=== PATIENT | male | born 1985 | race Caucasian/White ===

== ENCOUNTER → 2020-06-26 | Outpatient (CLI) | payer OTHER ==
[2020-06-26 11:24] LABS: BASO # 0.1 10^3/uL (0.0-0.2); BASO % 0.6 % (0.0-1.0); EOS # 0.1 10^3/uL (0.0-0.5); EOS % 1.2 % (0.0-3.0); HEMATOCRIT 44.4 % (42.0-52.0); HEMOGLOBIN 14.7 g/dl (13.5-17.5); LYMPH % 30.9 % (24.0-44.0); MEAN CORPUSCULAR HEMOGLOBIN 30.6 pg (27.0-33.0); MEAN CORPUSCULAR HGB CONC 33.1 g/dl (32.0-36.5); MEAN CORPUSCULAR VOLUME 92.5 fl (80.0-96.0); MONO # 0.9 10^3/uL (0.0-0.8); MONO % 9.1 % (0.0-5.0); NEUTROPHILS # 5.6 10^3/uL (1.5-8.5); NEUTROPHILS % 57.9 % (36.0-66.0); PLATELET COUNT, AUTOMATED 189 10^3/uL (150-450); WHITE BLOOD COUNT 9.6 10^3/uL (4.0-10.0)
[2020-06-26 11:33] LABS: APPEARANCE, URINE CLEAR (CLEAR); BACTERIA, URINE AUTO NEGATIVE (NEGATIVE); BILIRUBIN, URINE AUTO NEGATIVE (NEGATIVE); BLOOD, URINE BLOOD NEGATIVE (NEGATIVE); COLOR, URINE YELLOW (YELLOW); GLUCOSE, URINE (UA) AUTO NEGATIVE (NEGATIVE); KETONE, URINE AUTO NEGATIVE (NEGATIVE); LEUKOCYTE ESTERASE, URINE AUTO NEGATIVE (NEGATIVE); NITRITE, URINE AUTO NEGATIVE (NEGATIVE); PROTEIN, URINE AUTO NEGATIVE (NEGATIVE); RBC, URINE AUTO 1 /HPF (0-3); SPECIFIC GRAVITY URINE AUTO 1.015 (1.002-1.035); SQUAMOUS EPITHELIAL CELL UR AU 0 /HPF (0-6); UROBILINOGEN, URINE AUTO 0.2 mg/dL (0.0-2.0); WBC, URINE AUTO 1 /HPF (0-3)
[2020-06-26 12:16] LABS: ALT/SGPT 187 U/L (12-78); BILIRUBIN,TOTAL 0.4 MG/DL (0.2-1.0); BLOOD UREA NITROGEN 11 MG/DL (7-18); CALCIUM LEVEL 9.8 MG/DL (8.5-10.1); CARBON DIOXIDE LEVEL 31 MEQ/L (21-32); CHLORIDE LEVEL 103 MEQ/L (98-107); CREATININE FOR GFR 0.67 MG/DL (0.70-1.30); GLOMERULAR FILTRATION RATE > 60.0 (>60); GLUCOSE, FASTING 67 MG/DL (70-100); HEPATITIS B SURFACE ANTIBODY POSITIVE (POSITIVE); HEPATITIS B SURFACE ANTIGEN NEGATIVE (NEGATIVE); POTASSIUM SERUM 4.5 MEQ/L (3.5-5.1); SODIUM LEVEL 138 MEQ/L (136-145); TOTAL PROTEIN 7.3 GM/DL (6.4-8.2)
== END ==
LOC: M LAB 10:24
PROVIDERS: ATTEND Physician Assistant Medical
DX: B18.2 Chronic viral hepatitis C (principal)

== ENCOUNTER 2020-07-27 18:07 | Emergency (ER) | payer OTHER ==
[~2020-07-27] VITALS: Ht 165.1 cm; Wt 70.9 kg
[2020-07-27] MEDS ORDERED: HYDR-3363 (18:16)
[2020-07-27] MEDS ORDERED: MIRT1TAB (18:16)
[2020-07-27] MEDS ORDERED: ESCI20TA (18:16)
[2020-07-27] MEDS ORDERED: KETOROLAC 60MG 2ML VIAL IM ONE (20:30)
--- NOTE | 2020-07-27 20:35 | REPVR ---
PROCEDURE INFORMATION: Exam: US Scrotum and Artery or Vein of the Abdominal and/or Reproductive Organs, Limited Scrotum Exam date and time: 07/27/2020 8:01 PM Age: 35 years old Clinical indication: Groin pain and scrotum pain; Additional info: Pain and swelling to left testicle TECHNIQUE: Imaging protocol: Real-time ultrasound of the scrotum. Real-time duplex ultrasound scan of the arterial or venous flow with sifuentes scale, color Doppler flow and spectral waveform analysis with image documentation. Limited Duplex exam focused of the scrotum. Duplex images required to evaluate for torsion and other vascular conditions. COMPARISON: No relevant prior studies available. FINDINGS: Right testicle: The right testicle is normal in size, 4.4 x 2.2 x 2.7 cm (13.7 mL). It has a normal homogeneous echotexture. There is no testicular mass. Left testicle: The left testicle is normal in size, 4.0 x 2.1 x 2.7 cm (11.9 mL). It has a normal homogeneous echotexture. There is no testicular mass. Epididymides: Right Epididymis: The right epididymal head is normal in size, 5.2 mm, and vascularity. Left Epididymis: The left epididymal head is normal in size, 5.9 mm. and vascularity. Scrotum: No varicocele. No scrotal fluid collections or wall thickening identified. Free fluid: Small bilateral hydroceles. Duplex Doppler of the scrotum Right testicle: Normal vascularity is documented using color and duplex Doppler. Resistive index is 0.67. PSV is 5.49 cm/s. EDV is 1.78 cm/s. Normal Doppler waveform. Left testicle: Normal vascularity is documented using color and duplex Doppler. Resistive index is 0.69. PSV is 7.13 cm/s. EDV is 2.20 cm/s. Normal Doppler waveform. IMPRESSION: 1. Small bilateral hydroceles. 2. Normal testicles. 3. No evidence of testicular torsion. Normal duplex Doppler study. 4. No epididymal small abnormality. Electronically signed by: Dayo Moctezuma On 07/27/2020 20:36:07 PM
--- NOTE | 2020-07-27 20:41 | REPVR ---
PROCEDURE INFORMATION: Exam: US Pelvis Limited, Male Exam date and time: 07/27/2020 8:01 PM Age: 35 years old Clinical indication: Pain and swelling to left testicle. Rule out inguinal hernia TECHNIQUE: Imaging protocol: Real-time pelvic ultrasound with image documentation. COMPARISON: Concurrent scrotal ultrasound. FINDINGS: Soft tissues: A left inguinal hernia contains only peritoneal fat. It does not contain bowel. It extends down to the scrotal sac. It is not reducible. The abdominal wall defect is 18 mm at rest and 24 mm with a Valsalva maneuver. Left hydrocele. IMPRESSION: Left inguinal hernia is non-reducible and contains fat without bowel. Electronically signed by: Dayo Moctezuma On 07/27/2020 20:41:34 PM
[2020-07-27] MEDS ORDERED: traMADol 50 MG TAB PO ONE (21:00)
[2020-07-27] MEDS ORDERED: traMADol 50 MG TAB (BULK 4 TAB ED) PO ONE (21:00)
[2020-07-27 21:10] VITALS: BP 125/67
[2020-07-27 21:25] LABS: CHLAMYDIA DNA AMPLIFICATION NEGATIVE (NEGATIVE); GC DNA AMPLIFICATION NEGATIVE (NEGATIVE)
== END 2020-07-27 21:18 | disposition home or self-care (01) ==
LOC: EDBD 18:07 → M ED 18:07
DX: K40.90 Unilateral inguinal hernia, without obstruction or gangrene, not specified as recurrent (principal); Z86.19 Personal history of other infectious and parasitic diseases; F17.200 Nicotine dependence, unspecified, uncomplicated; Z88.6 Allergy status to analgesic agent
CPT/HCPCS: 76857; 76870; 81001; 87491; 87591; 93976; 96372; 99284; J1885

== ENCOUNTER → 2020-09-22 | Outpatient (CLI) | payer OTHER ==
[~2020-09-22] MED LIST: ESCI20TA16; HYDR-3363; MIRT1TAB
== END ==
LOC: M LABSMTC 09:27
PROVIDERS: ATTEND Anesthesiology
DX: Z01.812 Encounter for preprocedural laboratory examination (principal); Z20.822 Contact with and (suspected) exposure to COVID-19

== ENCOUNTER 2020-09-27 06:55 | Day surgery (SDC) | payer OTHER ==
[~2020-09-27] VITALS: Ht 165.1 cm; Wt 73.9 kg
[~2020-09-27 06:55] MED LIST changes: +LR 1,000 ML IV ONE; +ceFAZolin SOD 2 GM in IV 1 EA IV ONE
--- OUTSIDE RECORDS SUMMARY | 2020-09-27 06:59 | CCD | Continuity of Care Document ---
Author Author Bobby LANDA MA Organization Unknown Address [address] [place] [address] Phone [phone] Care Team Providers Care Fountain Pen Turner Name Role Phone Antonio Gil DO AUTM [phone] Antonio Gil DO AUTM [phone] Social History Type Date Description Comments Sex Unknown Results Test Acquired Date Facility Test Result H/L Range Note Ua Routine 06/26/[address] [address] [phone] Appearance, Urine CLEAR Normal Clear Color, Urine YELLOW Normal Yellow PH,Urine 7.0 units Normal 5.0-9.0 Specific [place] Urine Auto 1.015 Normal 1.002-1.035 Protein, Urine Auto NEGATIVE mg/dL Normal Negative Glucose, Urine (Ua) Auto NEGATIVE mg/dL Normal Negative Ketone, Urine Auto NEGATIVE mg/dL Normal Negative Urobilinogen, Urine Auto 0.2 mg/dL Normal 0.0-2.0 Bilirubin, Urine Auto NEGATIVE Normal Negative Nitrite, Urine Auto NEGATIVE Normal Negative Leukocyte Esterase, Urine Auto NEGATIVE Normal Negative Blood, Urine Blood NEGATIVE Normal Negative WBC, Urine Auto 1 /HPF Normal 0-3 RBC, Urine Auto 1 /HPF Normal 0-3 Bacteria, Urine Auto NEGATIVE Normal Negative Squamous Epithelial Cell Ur AU 0 /HPF Normal 0-6 Sperm, Urine Auto MODERATE High None Hyaline Cast, Urine Auto 0 /LPF Normal 0-1 CBC With Differential 06/26/[address] [address] [phone] White Blood Count 9.6 10 Normal 4.0-10.0 Red Blood Count 4.80 10 Normal 4.30-6.10 Hemoglobin 14.7 g/dL Normal 13.5-17.5 Hematocrit 44.4 % Normal 42.0-52.0 Mean Corpuscular Volume 92.5 fl Normal 80.0-96.0 Mean Corpuscular Hemoglobin 30.6 pg Normal 27.0-33.0 Mean Corpuscular HGB Conc 33.1 g/dL Normal 32.0-36.5 Red Cell Distribution Width 12.8 % Normal 11.5-14.5 Platelet Count, Automated 189 10 Normal 150-450 Neutrophils % 57.9 % Normal 36.0-66.0 Lymph % 30.9 % Normal 24.0-44.0 [place] % 9.1 % High 0.0-5.0 Eos % 1.2 % Normal 0.0-3.0 Baso % 0.6 % Normal 0.0-1.0 Immature Granulocyte % 0.3 % Normal 0-3.0 Nucleated Red Blood Cell % 0.0 % Normal 0-0 Neutrophils # 5.6 10 Normal 1.5-8.5 Lymph # 3.0 10 Normal 1.5-5.0 [place] # 0.9 10 High 0.0-0.8 Eos # 0.1 10 Normal 0.0-0.5 Baso # 0.1 10 Normal 0.0-0.2 Comprehensive Metabolic Profil 06/26/[address] [address] [phone] Glucose, Fasting 67 mg/dL Low 70-100 Blood Urea Nitrogen 11 mg/dL Normal 7-18 Creatinine For GFR 0.67 mg/dL Low 0.70-1.30 Glomerular Filtration Rate > 60.0 Normal >60 1 Sodium Level 138 mEq/L Normal 136-145 Potassium Serum 4.5 mEq/L Normal 3.5-5.1 Chloride Level 103 mEq/L Normal 98-107 Carbon Dioxide Level 31 mEq/L Normal 21-32 Anion Gap 4 mEq/L Low 8-16 Calcium Level 9.8 mg/dL Normal 8.5-10.1 Ast/Sgot 66 U/L High 7-37 Alt/SGPT 187 U/L High 12-78 Alkaline Phosphatase 71 U/L Normal 45-117 Bilirubin,Total 0.4 mg/dL Normal 0.2-1.0 Total Protein 7.3 GM/DL Normal 6.4-8.2 Albumin 4.0 GM/DL Normal 3.2-5.2 Albumin/Globulin Ratio 1.2 Normal Laboratory test [facility] [address] [place], [place] [id number] [phone] Hepatitis B Surface Antigen NEGATIVE Normal Nega tive Hepatitis B Surface Antibody POSITIVE Normal Positive Hepatitis C Virus Genotype 06/26/2020 [facility] [address] [place] [address] [phone] Hepatitis C Virus Genotype 1a Normal . Comment For Hepc Genotype (SEE NOTE) Normal . 2 Hepatitis C Quant By PCR 06/26/2020 [facility] [address] [place] [address] [phone] Hepatitis C Quantitation [id number] IU/mL Normal . Hepatitis C log10 6.089 Normal . 3 Test Information: (SEE NOTE) Normal . 4 Laboratory test finding [facility] [address] [place] [address] [phone] Hepatitis A IgG Total Negative Normal Negative 5 Hepatitis C Fibrosure [id number] 06/26/2020 [facility] [address] [place] [address] [phone] Fibrosis Score 0.13 Normal 0.00-0.21 Fibrosis Stage (SEE NOTE) Normal . 6 Necroinflam Score 0.77 High 0.00-0.17 Necroinflamm Grade A3-Severe activi <SEE NOTE> Normal . 7 Alpha 2-Macroglobulin 218 mg/dL Normal 110-276 Haptoglobin 136 mg/dL Normal 17-317 Apolipoprotein A-1 118 mg/dL Normal 101-178 Total Bilirubin 0.3 mg/dL Normal 0.0-1.2 GGT 16 IU/L Normal 0-65 Alt 204 IU/L High 0-55 Interpretation (SEE NOTE) Normal . 8 Fibrosis Scoring (SEE NOTE) Normal . 9 Necroinflam Scoring (SEE NOTE) Normal . 10 Limitations (SEE NOTE) Normal . 11 Comment : (SEE NOTE) Normal . 12 1 Units are mL/min/1.73 m2 Chronic Kidney Disease Staging per NKF: Stage I & II GFR >=60 Normal to Mildly Decreased Stage III GFR 30-59 Moderately Decreased Stage IV GFR 15-29 Severely Decreased Stage V GFR <15 Very Little GFR Left ESRD GFR <15 on LOG HAULER 2 . This test was developed and its performance characteristics determined by [facility]. It has not been cleared or approved by the U.S. Food and Drug Administration. . The FDA has determined that such clearance or approval is not necessary. This test is used for clinical purposes. It should not be regarded as investigational or for research. 3 Result Units: log10 IU/mL 4 . The quantitative range of this assay is 15 IU/mL to 100 million IU/mL. 5 Performed at: [address] [id number] Auto Brake Technician: Steven Blackwood MD, Phone: [phone] Performed at: [address] [id number] Auto Brake Technician: Rima Ochoa MD, Phone: [phone] 6 F0 - No fibrosis 7 A3-Severe activity 8 . Quantitative results of 6 biochemical tests are analyzed using a computational algorithm to provide a quantitative surrogate marker (0.0-1.0) for liver fibrosis (METAVIR F0- F4) and for necroinflammatory activity (METAVIR A0-A3). 9 . <0.21 = Stage F0 - No fibrosis 0.21 - 0.27 = Stage F0 - F1 0.27 - 0.31 = Stage F1 - Portal fibrosis 0.31 - 0.48 = Stage F1 - F2 0.48 - 0.58 = Stage F2 - Bridging fibros is with few septa 0.58 - 0.72 = Stage F3 - Bridging fibros is with many septa 0.72 - 0.74 = Stage F3 - F4 >0.74 = Stage F4 - Cirrhosis 10 . <0.17 = Grade A0 - No Activity 0.17 - 0.29 = Grade A0 - A1 0.29 - 0.36 = Grade A1 - Minimal activit y 0.36 - 0.52 = Grade A1 - A2 0.52 - 0.60 = Grade A2 - Moderate activi ty 0.60 - 0.62 = Grade A2 - A3 >0.62 = Grade A3 - Severe activity 11 The negative predictive valu e of a Fibrotest score <0.31 (absence of clinically significant fibro sis) was 85% when compared to liver biopsy in 1,270 HCV infected patients with a 38% prevalence of significant liver fibrosis (F2, 3 or 4). The positive predictive value of a Fibro-test score >0.48 (F2, 3, 4) was 61% in that same patient cohort. HCV FibroSURE is not recommended in patients with Gilbert Disease, acute hemolysis (e.g. HCV ribavirin therapy mediated hemolysis) acute hepa-titis of the liver, extra- hepatic cholestasis, transplant patients, and/or renal insufficiency patients. Any of these clinical situations may lead to inaccurate quantitative predictions of fibrosis and necroinflammatory activity in the liver. 12 . This test was developed and its performance characteristics determined by [facility]. It has not been cleared or approved by the Food and Drug Administration. The FDA has determined that such clearance or approval is not necessary. . For questions regarding this report please contact customer service at . Encounters Type Date Location Provider Dx Diagnosis Office Visit 09/09/2020 9:30a [facility] JEWEL Soni Z01.818 Encounter for other preproce dural examination F41.9 Anxiety disorder, unspecifie d Office Visit 08/09/2020 9:00a [facility] JEWEL Soni J01.10 Acute frontal sinusitis, uns pecified F41.9 Anxiety disorder, unspecifie d Z03.818 Encntr for obs for susp exps r to oth biolg agents ruled out Assessments Date Code Description Provider 09/09/2020 Z01.818 Encounter for other preprocedura l examination JEWEL Harper 09/09/2020 F41.9 Anxiety disorder, unspecified JEWEL Mann 08/09/2020 J01.10 Acute frontal sinusitis, unspeci fied JEWEL Harper 08/09/2020 F41.9 Anxiety disorder, unspecified JEWEL Mann 08/09/2020 Z03.818 Encounter for observ ation for suspected exposure to other biological agents ruled out JEWEL Harper 06/17/2020 F41.9 Anxiety disorder, unspecified JEWEL Mann 06/17/2020 F32.9 Major depressive disorder, singl e episode, unspecified JEWEL Harper Referrals Refer to Dr Lawson for Referral Status Appt Date Clive, DR. Marylene PATIENT WITH H/O SUBSTANCE A BUSE. HEP C + PLEASE EVAL AND TREAT. Sent [facility] [place] [address] [phone]
--- OUTSIDE RECORDS SUMMARY | 2020-09-27 06:59 | CCD | Continuity of Care Document ---
Author Author Bobby LANDA MS Organization Unknown Address [address] [place] [address] Phone [phone] Care Team Providers Care Railroad Car Truck Builder Name Role Phone Antonio Gil DO AUTM [phone] Antonio Gil DO AUTM [phone] Social History Type Date Description Comments Sex Unknown Results Test Acquired Date Facility Test Result H/L Range Note Ua Routine 06/26/[address] [address] [phone] Appearance, Urine CLEAR Normal Clear Color, Urine YELLOW Normal Yellow PH,Urine 7.0 units Normal 5.0-9.0 Specific [place] Urine Auto 1.015 Normal 1.002-1.035 Protein, Urine [...] /LPF Normal 0-1 CBC With Differential 06/26/[address] [address] [phone] White Blood Count 9.6 10 Normal 4.0-10.0 [...] 36.0-66.0 Lymph % 30.9 % Normal 24.0-44.0 [place] % 9.1 % High 0.0-5.0 Eos % 1.2 % Normal 0.0-3.0 Baso % 0.6 % Normal 0.0-1.0 Immature Granulocyte % 0.3 % Normal 0-3.0 Nucleated Red Blood Cell % 0.0 % Normal 0-0 Neutrophils # 5.6 10 Normal 1.5-8.5 Lymph # 3.0 10 Normal 1.5-5.0 [place] # 0.9 10 High 0.0-0.8 Eos # 0.1 10 Normal 0.0-0.5 Baso # 0.1 10 Normal 0.0-0.2 Comprehensive Metabolic Profil 06/26/[address] [address] [phone] Glucose, Fasting 67 mg/dL Low 70-100 Blood [...] Ratio 1.2 Normal Laboratory test [facility] [address] [place], [place] [id number] [phone] Hepatitis B Surface Antigen NEGATIVE Normal Nega tive Hepatitis B Surface Antibody POSITIVE Normal Positive Hepatitis C Virus Genotype 06/26/2020 [facility] [address] [place] [address] [phone] Hepatitis C Virus Genotype 1a Normal . Comment For Hepc Genotype (SEE NOTE) Normal . 2 Hepatitis C Quant By PCR 06/26/2020 [facility] [address] [place] [address] [phone] Hepatitis C Quantitation [id number] IU/mL Normal . Hepatitis C log10 6.089 Normal . 3 Test Information: (SEE NOTE) Normal . 4 Laboratory test finding 06/26/2020 [facility] [address] [place] [address] [phone] Hepatitis A IgG Total Negative Normal Negative 5 Hepatitis C Fibrosure [id number] 06/26/2020 [facility] [address] [place] [address] [phone] Fibrosis Score 0.13 Normal 0.00-0.21 Fibrosis Stage [...] Little GFR Left ESRD GFR <15 on ELECTRONICS SUPERVISOR 2 . This test was developed and its performance characteristics determined by [facility]. It has not been cleared or approved [...] to 100 million IU/mL. 5 Performed at: [address] [id number] Mobile Ui Designer: Steven Blackwood MD, Phone: [phone] Performed at: [address] [id number] Mobile Ui Designer: Rima Ochoa MD, Phone: [phone] 6 F0 - No fibrosis 7 A3-Severe [...] developed and its performance characteristics determined by [facility]. It has not been cleared or approved by the Food and Drug Administration. The FDA has determined that such clearance or approval is not necessary. . For questions regarding this report please contact customer service at . Encounters Type Date Location Provider Dx Diagnosis Office Visit 08/09/2020 9:00a [facility] JEWEL Soni J01.10 Acute frontal sinusitis, uns pecified F41.9 Anxiety disorder, unspecifie d Z03.818 Encntr for obs for susp exps r to oth biolg agents ruled out Assessments Date Code Description Provider 08/09/2020 J01.10 Acute frontal sinusitis, unspeci fied JEWEL Harper 08/09/2020 F41.9 Anxiety disorder, unspecified JEWEL Mann 08/09/2020 Z03.818 Encounter for observ ation for suspected exposure to other biological agents ruled out JEWEL Harper 06/17/2020 F41.9 Anxiety disorder, unspecified JEWEL Mann 06/17/2020 F32.9 Major depressive disorder, singl e episode, unspecified JEWEL Harper Plan of Treatment Future Appointment(s):* 09/09/2020 9:30 am - JEWEL Harper at [facility] Referrals Refer to Reason for Referral Status Appt Date DR. Torri Duffy PATIENT WITH H/O SUBSTANCE A BUSE. HEP C + PLEASE EVAL AND TREAT. Sent [address] [address] [phone]
--- OUTSIDE RECORDS SUMMARY | 2020-09-27 07:00 | CCD | Continuity of Care Document ---
Author Author Bobby ABREU DO Organization Unknown Address [address] [place] [address], [address] [place] [address] Phone [phone] Care Team Providers Care Field Advisor Name Role Phone Neymar Santizo AUTM [phone] Leah Ramos M.D. AUTM Problems Description No Information Available Social History Type Date Description Comments Sex Unknown ETOH Use Denies alcohol use NONE IN 3-[address] [facility] Tobacco Use Start: Unknown Patient is a current smoker, smo kes every day 1/2-1 PPD PREVIOUS 3PPD Recreational Drug Use Former Drug User Allergies, Adverse Reactions, Alerts Active Allergies Reaction Severity Comments Date Tylenol Hep C 08/01/2020 Medications Active Medications SIG Qnty Indications Ordering Provide r Date Hydroxyzine HCL 25mg Tablets 1 In Am, 2 AT Bedtime Unknown Mirtazapine 7.5mg Tablets at bedtime Unknown Escitalopram Oxalate 20mg Tablets every day 90tabs Unknown Vivitrol 380mg Suspension Rec Monthly Unknown Immunizations Description No Information Available Vital Signs Date Vital Result Comment 08/01/2020 2:21pm BP Systolic 134 mmHg BP Diastolic 71 mmHg Height 65 inches 5'5" Weight 157.00 lb BMI (Body Mass Index) 26.1 kg/m2 [place] Body Weight 136 lb Weight 71.215 kg BSA (Body Surface Area) 1.78 m2 Results Description No Information Available Procedures Description No Information Available Medical Devices Description No Information Available Encounters Description No Information Available Assessments Description No Information Available Plan of Treatment No Information Available Functional Status Description No Information Available Mental Status Description No Information Available Referrals Description No Information Available
--- OUTSIDE RECORDS SUMMARY | 2020-09-27 07:00 | CCD ---
Author Author [facility] Organization [facility] Address Unknown Phone Unavailable Care Team Providers Care Teacher Aide Clerical Name Role Phone Karoline LANDA PA Unavailable Unavailable TONTARSKI G EDIE PA Unavailable Unavailable TONTARSKI G EDIE PA Unavailable Unavailable TONTARSKI G EDIE PA Unavailable Unavailable TONTARSKI, G EDIE PA Unavailable Unavailable TONTARSKI, G EDIE PA Unavailable Unavailable TONTARSKI, G EDIE PA Unavailable Unavailable TONTARSKI, G EDIE PA Unavailable Unavailable TONTARSKI, G EDIE PA Unavailable Unavailable TONTARSKI, G EDIE PA Unavailable Unavailable TONTARSKI, G EDIE PA Unavailable Unavailable TONTARSKI, G EDIE PA Unavailable Unavailable TONTARSKI G EDIE PA Unavailable Unavailable TONTARSKI, G EDIE PA Unavailable Unavailable TONTARSKI, G EDIE PA Unavailable Unavailable TONTARSKI, G EDIE PA Unavailable Unavailable TONTARSKI, G EDIE PA Unavailable Unavailable TONTARSKI, G EDIE PA Unavailable Unavailable TONTARSKI, G EDIE PA Unavailable Unavailable TONTARSKI, G EDIE PA Unavailable Unavailable TONTARSKI, G EDIE PA Unavailable Unavailable TONTARSKI, G EDIE PA Unavailable Unavailable TONTARSKI, G EDIE PA Unavailable Unavailable TONTARSKI, G EDIE PA Unavailable Unavailable TONTARSKI, G EDIE PA Unavailable Unavailable TONTARSKI, G EDIE PA Unavailable Unavailable TONTARSKI, G EDIE PA Unavailable Unavailable TONTARSKI, G EDIE PA Unavailable Unavailable TONTARSKI, G EDIE PA Unavailable Unavailable TONTARSKI, G EDIE PA Unavailable Unavailable TONTARSKI, G EDIE PA Unavailable Unavailable TONTARSKI, G EDIE PA Unavailable Unavailable TONTARSKI, G EDIE PA Unavailable Unavailable TONTARSKI, G EDIE PA Unavailable Unavailable TONTARSKI, G EDIE PA Unavailable Unavailable TONTARSKI, G EDIE PA Unavailable Unavailable TONTARSKI, G EDIE PA Unavailable Unavailable TONTARSKI, G EDIE PA Unavailable Unavailable TONTARSKI, G EDIE PA Unavailable Unavailable TONTARSKI, G EDIE PA Unavailable Unavailable TONTARSKI, G EDIE PA Unavailable Unavailable TONTARSKI, G EDIE PA Unavailable Unavailable TONTARSKI, G EDIE PA Unavailable Unavailable TONTARSKI, G EDIE PA Unavailable Unavailable TONTARSKI, G EDIE PA Unavailable Unavailable TONTARSKI, G EDIE PA Unavailable Unavailable TONTARSKI, G EDIE PA Unavailable Unavailable TONTARSKI, G EDIE PA Unavailable Unavailable Sanford Spain MD Unavailable Unavailable Sanford Spain MD Unavailable Unavailable Sanford Spain MD Unavailable Unavailable Sanford Spain MD Unavailable Unavailable Sanford Spain MD Unavailable Unavailable Sanford Spain MD Unavailable Unavailable Mejia, L Nu ON SITE PROPERTY MANAGER Unavailable Unavailable Mejia, L Nu ON SITE PROPERTY MANAGER Unavailable Unavailable Mejia, L Nu ON SITE PROPERTY MANAGER Unavailable Unavailable Mejia, L Nu ON SITE PROPERTY MANAGER Unavailable Unavailable Mejia, L Nu ON SITE PROPERTY MANAGER Unavailable Unavailable Mejia, L Nu ON SITE PROPERTY MANAGER Unavailable Unavailable Mejia, L Nu ON SITE PROPERTY MANAGER Unavailable Unavailable Mejia, L Nu ON SITE PROPERTY MANAGER Unavailable Unavailable Mejia, L Nu ON SITE PROPERTY MANAGER Unavailable Unavailable Mejia, L Nu ON SITE PROPERTY MANAGER Unavailable Unavailable Mejia, L Nu ON SITE PROPERTY MANAGER Unavailable Unavailable Mejia, L Nu ON SITE PROPERTY MANAGER Unavailable Unavailable Mejia, L Nu ON SITE PROPERTY MANAGER Unavailable Unavailable Mejia, L Nu ON SITE PROPERTY MANAGER Unavailable Unavailable Mejia, L Nu ON SITE PROPERTY MANAGER Unavailable Unavailable Mejia, L Nu ON SITE PROPERTY MANAGER Unavailable Unavailable Mejia, L Nu ON SITE PROPERTY MANAGER Unavailable Unavailable Mejia, L Nu ON SITE PROPERTY MANAGER Unavailable Unavailable Mejia, L Nu ON SITE PROPERTY MANAGER Unavailable Unavailable Mejia, L Nu ON SITE PROPERTY MANAGER Unavailable Unavailable Mejia, L Nu ON SITE PROPERTY MANAGER Unavailable Unavailable Mejia, L Nu ON SITE PROPERTY MANAGER Unavailable Unavailable Mejia, L Nu ON SITE PROPERTY MANAGER Unavailable Unavailable Mejia, L Nu ON SITE PROPERTY MANAGER Unavailable Unavailable Mejia, L Nu ON SITE PROPERTY MANAGER Unavailable Unavailable Mejia, L Nu ON SITE PROPERTY MANAGER Unavailable Unavailable Mejia, L Nu ON SITE PROPERTY MANAGER Unavailable Unavailable Mejia, L Nu ON SITE PROPERTY MANAGER Unavailable Unavailable Mejia, L Nu ON SITE PROPERTY MANAGER Unavailable Unavailable Mejia, L Nu ON SITE PROPERTY MANAGER Unavailable Unavailable Mejia, L Nu ON SITE PROPERTY MANAGER Unavailable Unavailable Mejia, L Nu ON SITE PROPERTY MANAGER Unavailable Unavailable Mejia, L Nu ON SITE PROPERTY MANAGER Unavailable Unavailable Mejia, L Nu ON SITE PROPERTY MANAGER Unavailable Unavailable Mejia, L Nu ON SITE PROPERTY MANAGER Unavailable Unavailable Mejia, L Nu ON SITE PROPERTY MANAGER Unavailable Unavailable Mejia, L Nu ON SITE PROPERTY MANAGER Unavailable Unavailable Mejia, L Nu ON SITE PROPERTY MANAGER Unavailable Unavailable Mejia, L Nu ON SITE PROPERTY MANAGER Unavailable Unavailable Mejia, L Nu ON SITE PROPERTY MANAGER Unavailable Unavailable Mejia, L Nu ON SITE PROPERTY MANAGER Unavailable Unavailable Mejia, L Nu ON SITE PROPERTY MANAGER Unavailable Unavailable Mejia, L Nu ON SITE PROPERTY MANAGER Unavailable Unavailable Mejia, L Nu ON SITE PROPERTY MANAGER Unavailable Unavailable Re-disclosure Warning The records that you are about to access may contain information from federally-assisted alcohol or drug abuse programs. If such information is present, then the following federally mandated warning applies: This information has been disclosed to you from records protected by federal confidentiality rules (42 CFR part 2). The federal rules prohibit you from making any further disclosure of this information unless further disclosure is expressly permitted by the written consent of the person to whom it pertains or as otherwise permitted by 42 CFR part 2. A general authorization for the release of medical or other information is NOT sufficient for this purpose. The Federal rules restrict any use of the information to criminally investigate or prosecute any alcohol or drug abuse patient.The records that you are about to access may contain highly sensitive health information, the redisclosure of which is protected by Article 27-F of the [facility] Public Health law. If you continue you may have access to information: Regarding HIV / AIDS; Provided by facilities licensed or operated by the [facility] Office of Mental Health; or Provided by the [facility] Office for People With Developmental Disabilities. If such information is present, then the following [facility] mandated warning applies: This information has been disclosed to you from confidential records which are protected by state law. State law prohibits you from making any further disclosure of this information without the specific written consent of the person to whom it pertains, or as otherwise permitted by law. Any unauthorized further disclosure in violation of state law may result in a fine or skilled nursing sentence or both. A general authorization for the release of medical or other information is NOT sufficient authorization for further disc losure. Encounters Encounter Providers Location Date Indications Data Source(s ) Outpatient Attender: EDIE avila 09/09/2020 08:30:00 AM EST [facility] (Daniel Gonzalez MD) Outpatient Attender: EDIE avila 08/09/2020 08:00:00 AM EST [facility] (Daniel Gonzalez MD) Outpatient Attender: Nu Mejia NPAdmitter: Nu white ON SITE PROPERTY MANAGER OP-BF 06/19/2019 09:58:00 AM EDT [facility] Emergency Attender: Kt Spain MD 019 08:33:00 AM EDT - 04/03/2019 10:24:00 AM EDT NAIL IN HAND [facility] NAIL IN HAND Insurance Providers Payer name Policy type / Coverage type Policy ID Covered libertarian ID Covered libertarian's relationship to franco Policy Franco Plan Information JS [id number] Index [facility] [id number] P [id number] JS [id number] [facility] [id number] Dynamic [employer] [facility] [id number] SELF [id number] [employer] [id number] P [id number] [facility] PENDING [id number] P [id number] JS I [id number] Self [id number] JS I [id number] Self [id number] [facility] [place] CAPITATED [id number] Patien t [id number] MEDICAID (FOR ELIGIBILITY USE ONLY) [id number] Darlene ent [id number] JS UNAVAILABLE SELF UNAVAILA BLE SELF PAY XXX SELF XXX XXX XXX Results ID Date Data Source [id number] 09/22/2020 08:20:00 AM EST [facility] Name Value Range Interpretation Code Description Data Najma rce(s) Supporting Document(s) SARS coronavirus 2 RNA Not Detected [facility] [place] This lab was ordered by [facility] and reported by [facility]. ID Date Data Source 0708/09/2020 12:00:00 AM EST [facility] Name Value Range Interpretation Code Description Data Najma rce(s) Supporting Document(s) SARS-CoV2 Rapid Antigen [facility] This lab was ordered by [facility] and reported by Daniel Gonzalez MD. ID Date Data Source [id number] 06/26/2020 10:53:00 AM EST [facility] (Daniel Gonzalez MD) Name Value Range Interpretation Code Description Data Najma rce(s) Supporting Document(s) Laboratory test finding (navigational concept) Laboratory test r esult Normal (applies to non-numeric results) [facility] (Daniel Gonzalez MD) Laboratory test finding (navigational concept) Laboratory test r esult Normal (applies to non-numeric results) [facility] (Daniel Gonzalez MD) Laboratory test finding (navigational concept) 7.0 units 5 .0-9.0 Normal (applies to non-numeric results) [facility] (Daniel Gonzalez MD) Laboratory test finding (navigational concept) Laboratory test r esult Normal (applies to non-numeric results) [facility] (Daniel Gonzalez MD) Laboratory test finding (navigational concept) 1.015 1 .002-1.035 Normal (applies to non-numeric results) [facility] (Daniel Gonzalez MD) Laboratory test finding (navigational concept) Laboratory test r esult Normal (applies to non-numeric results) [facility] (Daniel Gonzalez MD) Laboratory test finding (navigational concept) Laboratory test r esult Normal (applies to non-numeric results) [facility] (Daniel Gonzalez MD) Laboratory test finding (navigational concept) 0.2 mg/dL 0 .0-2.0 Normal (applies to non-numeric results) [facility] (Daniel Gonzalez MD) Laboratory test finding (navigational concept) Laboratory test r esult Normal (applies to non-numeric results) [facility] (Daniel Gonzalez MD) Laboratory test finding (navigational concept) Laboratory test r esult Normal (applies to non-numeric results) [facility] (Daniel Gonzalez MD) Laboratory test finding (navigational concept) Laboratory test r esult Normal (applies to non-numeric results) [facility] (Daniel Gonzalez MD) Laboratory test finding (navigational concept) Laboratory test r esult Normal (applies to non-numeric results) [facility] (Daniel Gonzalez MD) Laboratory test finding (navigational concept) 1 /HPF 0 -3 Normal (applies to non-numeric results) [facility] (Daniel Gonzalez MD) Laboratory test finding (navigational concept) 1 /HPF 0 -3 Normal (applies to non-numeric results) [facility] (Daniel Gonzalez MD) Laboratory test finding (navigational concept) 0 /HPF 0 -6 Normal (applies to non-numeric results) [facility] (Daniel Gonzalez MD) Laboratory test finding (navigational concept) Laboratory test r esult Normal (applies to non-numeric results) [facility] (Daniel Gonzalez MD) Laboratory test finding (navigational concept) 0 /LPF 0 -1 Normal (applies to non-numeric results) [facility] (Daniel Gonzalez MD) Laboratory test finding (navigational concept) Laboratory test r esult Above high normal [facility] (Daniel Gonzalez MD) ID Date Data Source [id number] 06/26/2020 10:50:00 AM EST [facility] (Daniel Gonzalez MD) Name Value Range Interpretation Code Description Data Najma rce(s) Supporting Document(s) Laboratory test finding (navigational concept) 0.13 0 .00-0.21 Normal (applies to non-numeric results) [facility] (Daniel Gonzalez MD) Laboratory test finding (navigational concept) 0.77 0 .00-0.17 Above high normal [facility] (Daniel Gonzalez MD) Laboratory test finding (navigational concept) Laboratory test r esult Normal (applies to non-numeric results) [facility] (Daniel Gonzalez MD) F0 - No fibrosis Laboratory test finding (navigational concept) 136 mg/dL 1 7-317 Normal (applies to non-numeric results) [facility] (Daniel Gonzalez MD) Laboratory test finding (navigational concept) Laboratory test r esult Normal (applies to non-numeric results) [facility] (Daniel Gonzalez MD) A3-Severe activity Laboratory test finding (navigational concept) 218 mg/dL 1 10-276 Normal (applies to non-numeric results) [facility] (Daniel Gonzalez MD) Laboratory test finding (navigational concept) 0.3 mg/dL 0 .0-1.2 Normal (applies to non-numeric results) [facility] (Daniel Gonzalez MD) Laboratory test finding (navigational concept) 118 mg/dL 1 01-178 Normal (applies to non-numeric results) [facility] (Daniel Gonzalez MD) Laboratory test finding (navigational concept) 204 IU/L 0-55 Above high normal [facility] (Daniel Gonzalez MD) Laboratory test finding (navigational concept) Laboratory test r esult Normal (applies to non-numeric results) [facility] (Daniel Gonzalez MD) . Quantitative results of 6 biochemical tests are analyzed using a computational algorithm to provide a quantitative surrogate marker (0.0-1.0) for liver fibrosis (METAVIR F0- F4) and for necroinflammatory activity (METAVIR A0-A3). Laboratory test finding (navigational concept) 16 IU/L 0 -65 Normal (applies to non-numeric results) [facility] (Daniel Gonzalez MD) Laboratory test finding (navigational concept) Laboratory test r esult Normal (applies to non-numeric results) [facility] (Daniel Gonzalez MD) <content>.</content>
<content><0.21 = Stage F0 - No fibrosis</content>
<content>0.21 - 0.27 = Stage F0 - F1</content>
<content>0.27 - 0.31 = Stage F1 - Portal fibrosis</content>
<content>0.31 - 0.48 = Stage F1 - F2</content>
<content>0.48 - 0.58 = Stage F2 - Bridging fibrosis with few septa</content>
<content>0.58 - 0.72 = Stage F3 - Bridging fibrosis with many septa</content>
<content>0.72 - 0.74 = Stage F3 - F4</content>
<content>>0.74 = Stage F4 - Cirrhosis</content>
<content></content> Laboratory test finding (navigational concept) Laboratory test r esult Normal (applies to non-numeric results) [facility] (Daniel Gonzalez MD) <content>.</content>
<content><0.17 = Grade A0 - No Activity</content>
<content>0.17 - 0.29 = Grade A0 - A1</content>
<content>0.29 - 0.36 = Grade A1 - Minimal activity</content>
<content>0.36 - 0.52 = Grade A1 - A2</content>
<content>0.52 - 0.60 = Grade A2 - Moderate activity</content>
<content>0.60 - 0.62 = Grade A2 - A3</content>
<content>>0.62 = Grade A3 - Severe activity</content>
<content></content> Laboratory test finding (navigational concept) Laboratory test r esult Normal (applies to non-numeric results) [facility] (Daniel Gonzalez MD) . This test was developed and its performance characteristics determined by [employer]. It has not been cleared or approved by the Food and Drug Administration. The FDA has determined that such clearance or approval is not necessary. . For questions regarding this report please contact customer service at . Laboratory test finding (navigational concept) Laboratory test r esult Normal (applies to non-numeric results) [facility] (Daniel Gonzalez MD) <content>The negative predictive value o f a Fibrotest score <0.31</content>
<content>(absence of clinically significant fibrosis) was 85% when</content>
<content>compared to liver biopsy in 1,270 HCV infected patients</content>
<content>with a 38% prevalence of significant liver fibrosis (F2, 3</content>
<content>or 4). The positive predictive value of a Fibro-test score</content>
<content>>0.48 (F2, 3, 4) was 61% in that same patient cohort. HCV</content>
<content>FibroSURE is not recommended in patients with Gilbert</content>
<content>Disease, acute hemolysis (e.g. HCV ribavirin therapy</content>
<content>mediated hemolysis) acute hepa-titis of the liver, extra-</content>
<content>hepatic cholestasis, transplant patients, and/or renal</content>
<content>insufficiency patients. Any of these clinical situations</content>
<content>may lead to inaccurate quantitative predictions of</content>
<content>fibrosis and necroinflammatory activity in the liver.</content>
<content></content> ID Date Data Source [id number] 06/26/2020 10:50:00 AM EST [facility] (Daniel Gonzalez MD) Name Value Range Interpretation Code Description Data Najma rce(s) Supporting Document(s) Hepatitis A virus IgG Ab [Units/volume] in Serum Laboratory test result Normal (applies to non-numeric results) [facility] (Daniel Gonzalez MD ) Performed at: [facility] [address] [id number] Supervisor [place] Department: Steven Blackwood MD, Phone: [phone] Performed at: [facility] [address] [id number] Supervisor [place] Department: Rima Ochoa MD, Phone: [phone] ID Date Data Source [id number] 06/26/2020 10:50:00 AM EST [facility] (Daniel Gonzalez MD) Name Value Range Interpretation Code Description Data Najma rce(s) Supporting Document(s) Laboratory test finding (navigational concept) [id number] IU/ml Normal (applies to non-numeric results) [facility] (Daniel Gonzalez MD) Laboratory test finding (navigational concept) 6.089 Normal (applies to non- numeric results) [facility] (Daniel Gonzalez MD) Result Units: log10 IU/mL Laboratory test finding (navigational concept) Laboratory test r esult Normal (applies to non-numeric results) [facility] (Daniel Gonzalez MD) . The quantitative range of this assay is 15 IU/mL to 100 million IU/mL. ID Date Data Source [id number] 06/26/2020 10:50:00 AM EST [facility] (Daniel Gonzalez MD) Name Value Range Interpretation Code Description Data Najma rce(s) Supporting Document(s) Laboratory test finding (navigational concept) Laboratory test r esult Normal (applies to non-numeric results) [facility] (Daniel Gonzalez MD) . This test was developed and its performance characteristics determined by [facility]. It has not been cleared or approved by the U.S. Food and Drug Administration. . The FDA has determined that such clearance or approval is not necessary. This test is used for clinical purposes. It should not be regarded as investigational or for research. Laboratory test finding (navigational concept) Laboratory test r esult Normal (applies to non-numeric results) [facility] (Daniel Gonzalez MD) ID Date Data Source [id number] 06/26/2020 10:50:00 AM EST [facility] (Daniel Gonzalez MD) Name Value Range Interpretation Code Description Data Najma rce(s) Supporting Document(s) Hepatitis B virus surface Ag [Presence] in Serum or Pl asma by Immunoassay Laboratory test result Normal (applies to non-numeric results) [facility] (Daniel Gonzalez MD) Hepatitis B virus surface Ab [Presence] in Serum by Im munoassay Laboratory test result Normal (applies to non-numeric results) [facility] (Daniel Gonzalez MD) ID Date Data Source [id number] 06/26/2020 10:50:00 AM EST [facility] (Daniel Gonzalez MD) Name Value Range Interpretation Code Description Data Najma rce(s) Supporting Document(s) Laboratory test finding (navigational concept) 67 mg/dL 70-100 Below low normal [facility] (Daniel Gonzalez MD) Laboratory test finding (navigational concept) 11 mg/dL 7 -18 Normal (applies to non-numeric results) [facility] (Daniel Gonzalez MD) Laboratory test finding (navigational concept) Laboratory test r esult Normal (applies to non-numeric results) [facility] (Daniel Gonzalez MD) <content>Units are mL/min/1.73 m2</content>
<content></content>
<content>Chronic Kidney Disease Staging per NKF:</content>
<content></content>
<content>Stage I & II GFR >=60 Normal to Mildly Decreased</content>
<content>Stage III GFR 30- 59 Moderately Decreased</content>
<content>Stage IV GFR 15-29 Severely Decreased</content>
<content>Stage V GFR <15 Very Little GFR Left</content>
<content>ESRD GFR <15 on ADVANCED PRACTICE REGISTERED NURSE</content>
<content></content> Laboratory test finding (navigational concept) 0.67 mg/dL 0 .70-1.30 Below low normal [facility] (Daniel Gonzalez MD) Laboratory test finding (navigational concept) 4.5 meq/L 3 .5-5.1 Normal (applies to non-numeric results) [facility] (Daniel Gonzalez MD) Laboratory test finding (navigational concept) 138 meq/L 1 36-145 Normal (applies to non-numeric results) [facility] (Daniel Gonzalez MD) Laboratory test finding (navigational concept) 31 meq/L 2 1-32 Normal (applies to non-numeric results) [facility] (Daniel Gonzalez MD) Laboratory test finding (navigational concept) 103 meq/L 9 8-107 Normal (applies to non-numeric results) [facility] (Daniel Gonzalez MD) Laboratory test finding (navigational concept) 4 meq/L 8-16 Below low normal [facility] (Daniel Gonzalez MD) Laboratory test finding (navigational concept) 9.8 mg/dL 8 .5-10.1 Normal (applies to non-numeric results) [facility] (Daniel Gonzalez MD) Laboratory test finding (navigational concept) 66 U/L 7-37 Above high normal [facility] (Daniel Gonzalez MD) Laboratory test finding (navigational concept) 0.4 mg/dL 0 .2-1.0 Normal (applies to non-numeric results) [facility] (Daniel Gonzalez MD) Laboratory test finding (navigational concept) 187 U/L 12-78 Above high normal [facility] (Daniel Gonzalez MD) Laboratory test finding (navigational concept) 71 U/L 4 5-117 Normal (applies to non-numeric results) [facility] (Daniel Gonzalez MD) Laboratory test finding (navigational concept) 4.0 GM/DL 3 .2-5.2 Normal (applies to non-numeric results) [facility] (Daniel Gonzalez MD) Laboratory test finding (navigational concept) 7.3 GM/DL 6 .4-8.2 Normal (applies to non-numeric results) [facility] (Daniel Gonzalez MD) Laboratory test finding (navigational concept) 1.2 Normal (applies to non- numeric results) [facility] (Daniel Gonzalez MD) ID Date Data Source [id number] 06/26/2020 10:50:00 AM EST [facility] (Daniel Gonzalez MD) Name Value Range Interpretation Code Description Data Najma rce(s) Supporting Document(s) Laboratory test finding (navigational concept) 9.6 10 4 .0-10.0 Normal (applies to non-numeric results) [facility] (Daniel Gonzalez MD) Laboratory test finding (navigational concept) 4.80 10 4 .30-6.10 Normal (applies to non-numeric results) [facility] (Daniel Gonzalez MD) Laboratory test finding (navigational concept) 14.7 g/dL 1 3.5-17.5 Normal (applies to non-numeric results) [facility] (Daniel Gonzalez MD) Laboratory test finding (navigational concept) 44.4 % 4 2.0-52.0 Normal (applies to non-numeric results) [facility] (Daniel Gonzalez MD) Laboratory test finding (navigational concept) 33.1 g/dL 3 2.0-36.5 Normal (applies to non-numeric results) [facility] (Daniel Gonzalez MD) Laboratory test finding (navigational concept) 92.5 fl 8 0.0-96.0 Normal (applies to non-numeric results) [facility] (Daniel Gonzalez MD) Laboratory test finding (navigational concept) 30.6 pg 2 7.0-33.0 Normal (applies to non-numeric results) [facility] (Daniel Gonzalez MD) Laboratory test finding (navigational concept) 12.8 % 1 1.5-14.5 Normal (applies to non-numeric results) [facility] (Daniel Gonzalez MD) Laboratory test finding (navigational concept) 189 10 1 50-450 Normal (applies to non-numeric results) [facility] (Daniel Gonzalez MD) Laboratory test finding (navigational concept) 57.9 % 3 6.0-66.0 Normal (applies to non-numeric results) [facility] (Daniel Gonzalez MD) Laboratory test finding (navigational concept) 9.1 % 0.0-5.0 Above high normal [facility] (Daniel Gonzalez MD) Laboratory test finding (navigational concept) 30.9 % 2 4.0-44.0 Normal (applies to non-numeric results) [facility] (Daniel Gonzalez MD) Laboratory test finding (navigational concept) 1.2 % 0 .0-3.0 Normal (applies to non-numeric results) [facility] (Daniel Gonzalez MD) Laboratory test finding (navigational concept) 0.3 % 0 -3.0 Normal (applies to non-numeric results) [facility] (Daniel Gonzalez MD) Laboratory test finding (navigational concept) 0.6 % 0 .0-1.0 Normal (applies to non-numeric results) [facility] (Daniel Gonzalez MD) Laboratory test finding (navigational concept) 5.6 10 1 .5-8.5 Normal (applies to non-numeric results) [facility] (Daniel Gonzalez MD) Laboratory test finding (navigational concept) 0.0 % 0 -0 Normal (applies to non- numeric results) [facility] (Daniel Gonzalez MD) Laboratory test finding (navigational concept) 0.9 10 0.0-0.8 Above high normal [facility] (Daniel Gonzalez MD) Laboratory test finding (navigational concept) 3.0 10 1 .5-5.0 Normal (applies to non-numeric results) [facility] (Daniel Gonzalez MD) Laboratory test finding (navigational concept) 0.1 10 0 .0-0.5 Normal (applies to non-numeric results) [facility] (Daniel Gonzalez MD) Laboratory test finding (navigational concept) 0.1 10 0 .0-0.2 Normal (applies to non-numeric results) [facility] (Daniel Gonzalez MD) Procedure Vital Signs ID Date Data Source UNK Name Value Range Interpretation Code Description Data Source(s) Body surface area Derived from formula 1.78 m2 1.78 m2 [facility] ([facility]) Body weight 71.215 kg 71.215 kg [facility] ([facility]) [place] body weight 136 [lb_av] 136 [lb_av] [facility] ([facility]) Body mass index (BMI) [Ratio] 26.1 kg/m2 26.1 k g/m2 [facility] ([facility]) Body weight 157.00 [lb_av] 157.00 [lb_av] [facility] ([facility]) Body height 65 [in_i] 65 [in_i] [facility] ([facility]) 5'5" Diastolic blood pressure 71 mm[Hg] 71 mm[Hg] [facility] ([facility]) Systolic blood pressure 134 mm[Hg] 134 mm[Hg] [facility] ID Date Data Source [id number] 09/26/2019 07:52:00 AM EST [facility] Name Value Range Interpretation Code Description Data Source(s) HEIGHT 165.1 cm 165.1 cm [facility] WEIGHT RECORDED 68.620477 kg 68.167356 kg [facility] HEIGHT 165.1 cm 165.1 cm [facility] WEIGHT RECORDED 68.804714 kg 68.334388 kg [facility]
[2020-09-27] MEDS ORDERED: BUPIVACAINE/EPIN 0.25% 30 ML VIAL As Ordered ONE (07:10)
[2020-09-27] MEDS ORDERED: MIDAZOLAM INJ 2MG/2ML VIAL (J2250 PER 1MG) As Ordered ONE (07:19)
[2020-09-27] MEDS ORDERED: fentaNYL 250 MCG/5 ML INJECTION (J3010) As Ordered ONE (07:19)
[2020-09-27] MEDS ORDERED: propofoL 200 MG/20 ML VIAL As Ordered ONE (07:20)
[2020-09-27] MEDS ORDERED: ROCURONIUM BROMIDE 50 MG/5 ML VIAL As Ordered ONE ×3 (07:20→14:09)
[2020-09-27] MEDS ORDERED: dexameTHASONE 4 MG/ML 1ML VIAL (J1100 PER 1MG) As Ordered ONE (07:20)
[2020-09-27] MEDS ORDERED: KETOROLAC 60MG 2ML VIAL As Ordered ONE (07:20)
[2020-09-27] MEDS ORDERED: ONDANSETRON 4MG/2ML VIAL As Ordered ONE (07:20)
[2020-09-27] MEDS ORDERED: LIDOCAINE 2% 100MG/5ML SDV (FOR ANES.) As Ordered ONE (07:20)
[2020-09-27] MEDS ORDERED: SUGAMMADEX SODIUM 500 MG/5 ML VIAL (BRIDION) As Ordered ONE (07:57)
[2020-09-27] MEDS ORDERED: GLYCOPYRROLATE INJ 0.2 MG/ML 2 ML VIAL As Ordered ONE (07:59)
[2020-09-27] MEDS ORDERED: ePHEDrine SULFATE 25 MG/5 ML(5MG/ML) SYRINGE As Ordered ONE (08:01)
[2020-09-27] MEDS ORDERED: HYDROmorphone HCL 2 MG/ML 1ML VIAL (J1170) As Ordered ONE (08:11)
[2020-09-27] MEDS ORDERED: ONDANSETRON 4MG/2ML VIAL IV PRN (09:30)
[2020-09-27] MEDS ORDERED: NORCO, ANEXSIA 5/325MG TABLET (HYDROcodone/ACETAMINOPHEN) PO PRN (09:30)
[2020-09-27] MEDS ORDERED: LR 1,000 ML IV SCH (09:30)
[2020-09-27] MEDS ORDERED: oxyCODONE 5MG TAB PO PRN ×2 (09:30→10:45)
[2020-09-27] MEDS: fentaNYL 100 MCG/2 ML INJECTION (J3010) IV PRN ×4 (09:42→10:06)
[2020-09-27 11:30] VITALS: BP 130/68
--- NOTE | 2020-09-27 12:31 | RO ---
OPERATIVE NOTE DATE OF OPERATION: 09/27/2020 PREOPERATIVE DIAGNOSIS: Left inguinal hernia. POSTOPERATIVE DIAGNOSIS: Left inguinal hernia. PROCEDURE: Robotic repair of left inguinal hernia with mesh. SURGEON: Antonio Gil DO PROBATE CLERK: JAMILA Dietz ANESTHESIA: General. ESTIMATED BLOOD LOSS: 5 mL. COMPLICATIONS: None. INDICATIONS FOR PROCEDURE: The patient is a 35-year-old male who presented with a large bulge in the left groin found to have a large left inguinal hernia. Recommendation was to proceed with robotic repair. The risks and benefits of the procedure not limited to, but including bleeding, infection, hernia formation, damage to surrounding structures, hernia recurrence, and the need for further surgery were discussed in detail in with the patient. Informed consent was obtained and the procedure was planned. DESCRIPTION OF PROCEDURE: The patient was brought back to operating room 7. After sufficient sedation, the abdomen was sterilely prepped and draped. Next a time-out was done to confirm the proper patient and proper procedure. Following that, an 8-mm incision was made in the left upper quadrant, a Veress needle inserted, and the abdomen was insufflated to 250 mmHg. The Veress needle was then removed and an 8-mm Optiview port was used to gain access to the abdomen. Once the abdomen was entered, two more 8-mm ports were placed with one in the midline and one in the right upper quadrant. Next, the robot was docked to the ports. Next from the console, there was an obvious large left inguinal indirect hernia full of omentum. The omentum was carefully reduced. Once that was completed, a horizontal incision was made just superior to the inguinal canal. The dissection was then carried out posteriorly, medially, and laterally surrounding the hernia sac all the way over medially to the pubic symphysis. Once the hernia sac was dissected free, it was dissected distally. I was unable to get all the way to the end of it, it was a very long and narrow hernia sac; but once I got about 3/4 of it dissected free, I was able to transect it and reduce the remainder of it. Once that was completed and the dissection was complete medially, laterally, and postoperatively, the Bard 3DMax Light medium mesh was placed into the left side and sutured to the pubic symphysis with a 2-0 Vicryl suture. The 2-0 V-Loc was then used to close up the peritoneal defect that was created. The redundant hernia sac was then incorporated into that incision to ligate it off and suture it closed. Once this was all completed, the abdomen was desufflated, needles were removed, and skin incisions were closed with 4-0 Vicryl subcuticular sutures. The abdomen was cleaned and dry. Steri-Strips, 4 X 4, and tape were applied. This ended the procedure.
== END 2020-09-27 12:47 | disposition home or self-care (01) ==
LOC: M SDC 06:55
PROVIDERS: ATTEND Surgery
DX: K40.90 Unilateral inguinal hernia, without obstruction or gangrene, not specified as recurrent (principal); B18.2 Chronic viral hepatitis C; F41.9 Anxiety disorder, unspecified; F32.9 Major depressive disorder, single episode, unspecified; F17.218 Nicotine dependence, cigarettes, with other nicotine-induced disorders; Z79.899 Other long term (current) drug therapy; Z88.8 Allergy status to other drugs, medicaments and biological substances
CPT/HCPCS: 49650; C1781; J0690; J1100; J1170; J1885; J2250; J2405; J3010; S2900